=== PATIENT | female | born 1960 ===

== ENCOUNTER 2021-02-28 08:34 | Day surgery (SDC) | payer OTHER ==
[~2021-02-28 08:34] MED LIST: COZAAR25 MG PO; D3 + K2 DOTS 11 EACH PO; JANUMET XR 50-1 EACH PO; LANTUS SOL100 UNIT/1
[2021-02-28] MEDS ORDERED: DUI500 PO (15:38)
[2021-02-28] MEDS ORDERED: ULTRACET PO (15:38)
== END 2021-02-28 20:30 | disposition home or self-care (01) ==
LOC: CIR.AMB 08:34
PROVIDERS: ATTEND Orthopaedic Surgery Sports Medicine
DX: M23.8X2 Other internal derangements of left knee (principal); M65.862 Other synovitis and tenosynovitis, left lower leg; M67.52 Plica syndrome, left knee; Z20.822 Contact with and (suspected) exposure to COVID-19